=== PATIENT | male | born 1955 | race Two or more races ===

== ENCOUNTER 2018-05-06 02:54 | Emergency (ER) | payer OTHER, MEDICAID ==
[~2018-05-06] VITALS: Ht 182.9 cm; Wt 158.8 kg
[2018-05-06] MEDS ORDERED: cloNIDine HCL 0.1 MG TAB ONE (03:04)
[2018-05-06] MEDS ORDERED: cloNIDine HCL 0.1 MG TAB PO ONE ×3 (03:15→07:45)
[2018-05-06 03:16] LABS: Eosinophils # (auto) 0.2 uL; Eosinophils % (auto) 2.7 % (0.0-7.0); Hemoglobin 13.6 g/dL (13.5-17.5); Lymphocytes # (auto) 1.6 uL; Monocytes # (auto) 0.9 uL; Neutrophils % (auto) 67.5 % (37.0-80.0)
[2018-05-06 03:17] LABS: Basophils # (auto) 0 uL; Basophils % (auto) 0.5 % (0.0-2.0); Hematocrit 42.8 % (41.0-53.0); Lymphocytes % (auto) 18.9 % (10.0-50.0); Mean Corpuscular Hemoglobin 21.8 pg (28.0-32.0); Mean Corpuscular Hgb Conc. 31.7 g/dL (32.0-36.0); Mean Corpuscular Volume 68.8 fL (80.0-100.0); Monocytes % (auto) 10.4 % (0.0-12.0); Neutrophils # (auto) 5.7 uL; Nucleated Red Blood Cells % 0.1 %; Platelet Count (auto) 216 10^3/uL (140-450); Red Blood Cells 6.22 10^6/uL (4.5-5.90); Red Cell Distribution Width 16.9 % (11.8-14.3); White Blood Cell 8.5 10^3/uL (4.4-10.8)
[2018-05-06 03:36] LABS: Alanine Aminotransferase 24 U/L (16-61); Albumin 3.4 g/dL (3.4-5.0); Anion Gap 8 (5-15); Aspartate Aminotransferase 20 U/L (15-37); BUN/Creatinine Ratio 25.3; Blood Urea Nitrogen 23 mg/dL (7-18); Carbon Dioxide 24 mmol/L (21-32); Chloride 112 mmol/L (98-107); GFR African American 108 mL/min; GFR Non-African American 89 mL/min; Glucose 103 mg/dL (74-106); Magnesium 2.2 mg/dL (1.6-2.6); Potassium 3.7 mmol/L (3.5-5.1); Sodium 144 mmol/L (136-145)
[2018-05-06 03:41] LABS: Alkaline Phosphatase 91 U/L (45-117); Bilirubin, Total 0.4 mg/dL (0.2-1.0); Total Protein 7.5 g/dL (6.4-8.2)
[2018-05-06] MEDS ORDERED: HYDROcodone-ACET 5/325MG TAB PO ONE (06:45)
[2018-05-06] MEDS ORDERED: amLODIPine BESYLATE 5 MG TAB PO ONE ×2 (09:15→10:15)
[2018-05-06 12:28] VITALS: BP 171/87
== END 2018-05-06 12:29 | disposition home or self-care (01) ==
LOC: ER 02:54
DX: I10 Essential (primary) hypertension (principal); R51 Headache; I25.2 Old myocardial infarction
CPT/HCPCS: 36415; 70450; 71045; 80053; 83735; 83880; 84484; 85025; 93005

== ENCOUNTER → 2018-05-12 | Outpatient (CLI) | payer OTHER, MEDICAID | END | disposition home or self-care (01) | LOC: Rad HDHVI 15:44 | PROVIDERS: ATTEND Internal Medicine Cardiovascular Disease | DX: I11.0 Hypertensive heart disease with heart failure (principal); I50.33 Acute on chronic diastolic (congestive) heart failure; R06.02 Shortness of breath | CPT/HCPCS: 93306 ==

== ENCOUNTER 2019-02-12 19:44 | Emergency (ER) | payer OTHER, MEDICAID ==
[~2019-02-12] VITALS: Ht 182.9 cm; Wt 147.4 kg
[2019-02-13] MEDS ORDERED: cloNIDine HCL 0.1 MG TAB PO ONE (02:45)
[2019-02-13 03:47] VITALS: BP 141/94
[2019-02-13] MEDS ORDERED: HYDROcodone-ACET 10/325MG TAB PO ONE (04:00)
== END 2019-02-13 04:13 | disposition home or self-care (01) ==
LOC: ER 19:51
DX: S46.911A Strain of unspecified muscle, fascia and tendon at shoulder and upper arm level, right arm, initial encounter (principal); M19.011 Primary osteoarthritis, right shoulder; I10 Essential (primary) hypertension; I25.2 Old myocardial infarction; W19.XXXA Unspecified fall, initial encounter; Y93.89 Activity, other specified; Y92.89 Other specified places as the place of occurrence of the external cause; Y99.8 Other external cause status
CPT/HCPCS: 73030